=== PATIENT | male | born 1985 | race Caucasian/White ===

== ENCOUNTER 2025-02-15 16:16 | Outpatient (AMB) | payer OTHER, SELFPAY ==
--- OUTSIDE RECORDS SUMMARY | 2025-02-15 16:19 | XMS_ITS | Clinical Summary ---
Author Organization [facility] Address [address] [place] [address] Phone Care Team Providers Care Chartered Accountant Name Role Phone Physician, Pcp Unknown Primary Care Provider Dottie vailable Allergies No known active allergies Medications amLODIPine (NORVASC) 2.5 mg tablet Take 1 tablet (2.5 mg total) by mouth 1 (one) time each day. 30 tablet 09/29/2024 Active Social History Tobacco Use Types Packs/Day Years Used Date Smoking Tobacco: Former Cigarettes Tobacco Cessation:Counseling Given: Not Answered Alcohol Use Standard Drinks/Week Comments Not Currently 0 (1 standard drink = 0.6 oz pur e alcohol) Sex and Gender Information Value Date Recorded Sex Assigned at Not on file Legal Sex Male 5:07 AM EST Gender Identity Not on file Sexual Orientation Not on file Obstetrics History Last Filed Vital Signs Vital Sign Reading Time Taken Comments Blood Pressure 163/88 09/29/2024 4:24 AM EDT Pulse 72 09/29/2024 4:24 AM EDT Temperature 36.9 C (98.4 F) 09/29/2024 4:24 AM EDT Respiratory Rate 16 09/29/2024 4:24 AM EDT Oxygen Saturation 97% 09/29/2024 4:24 AM EDT Inhaled Oxygen Concentration - - Weight 154 kg (340 lb) 09/28/2024 11:59 PM EDT Height 170.2 cm (5' 7 ) 09/28/2024 11:59 PM EDT Body Mass Index 53.25 09/28/2024 11:59 PM EDT Plan of Treatment Health Maintenance Due Date Last Done Comments DTaP,Tdap,and Td Vaccines (1 - Tdap) 2005 Hepatitis B Vaccines (1 of 3 - 19+ 3-dose series) 2005 Cholesterol Screening (Lipid Panel) 05/02/2022 HIV Screening 05/02/2022 Hepatitis C Screening 05/02/2022 Social Influencers of Health Screening 05/02/2022 Depression Screening 05/30/2024 COVID-19 Vaccine (1 - 2023-2 5 season) 2025 Influenza Vaccine (#1) 2025 HIB Vaccines Aged Out No longer eligi ble based on patient's age to complete this topic HPV Vaccines Aged Out No longer eligi ble based on patient's age to complete this topic Hepatitis A Vaccines Aged Out No long er eligible based on patient's age to complete this topic IPV Vaccines Aged Out No longer eligi ble based on patient's age to complete this topic MMR Vaccines Aged Out No longer eligi ble based on patient's age to complete this topic Meningococcal ACWY Vaccine Aged Out N o longer eligible based on patient's age to complete this topic Meningococcal B Vaccine Aged Out No l onger eligible based on patient's age to complete this topic Pneumococcal Vaccine: Pediat rics (0 to 5 Years) and At-Risk Patients (6 to 49 Years) Aged Out No longer eligible b ased on patient's age to complete this topic RSV Immunization Patients Un lashon 20 months Aged Out No longer eligible b ased on patient's age to complete this topic Varicella Vaccines Aged Out No longer eligible based on patient's age to complete this topic Insurance MEDICA[place] - [place] Care Teams Chartered Accountant Relationship Specialty Start Date End Date Physician, Pcp Unknown PCP - General 09/29/24
--- NOTE | 2025-02-15 16:20 | MHC.PC.OV ---
Vital Signs 02/15/25 16:22 02/15/25 16:53 Height 5 ft 7 in Weight 155.129 kg BMI 53.6 BP 162/90 H 160/110 H Respiration 16 Pulse 65 Pulse Source Pulse Oximeter Temp 97.3 F Temp Source Temporal Artery Scan Pulse Oximetry (%) 95 Oxygen Delivery Method Room Air Intake Visit Reasons: New Patient Business Strategy Manager Required: No Accompanied by: Self / Same As Patient Allergies acetaminophen (From Tylenol) Allergy (Mild, Verified 02/15/25 16:23) Hives Medication List - Last Reconciled 02/15/25 by ADELFO Sesay diltiazem HCl 60 mg PO BID lorazepam mg PO Tobacco use date assessed: 02/15/25 Dental Screening Dental Screen Date: 02/15/25 Did you have a dental visit in the last 12 months?: Yes Did you have a dental problem in the last 6 months where you did not have access to dental care?: No Was dental information given to patient?: No HPI HPI Comments History of Present Illness Details 39-year-old male with history of hypertension, chronic right shoulder pain, chronic right knee pain, left elbow pain, morbid obesity with BMI greater than 53 presents to the office today for management of chronic conditions and to establish care. He has prior patient transferring from [facility]. Has had several ER visits with significantly elevated blood pressures with systolic pressure up to 240. He tells me he would bring himself to the ER due to intermittent palpitations where he would feel a skipped beat and then we feel his heart racing would occasionally be drenched in sweat and would feel generally unwell. No known history of arrhythmia. No drugs or alcohol when this was occurring. Reports this has been increasing in frequently over the last 2 months. Workup in the ED had always been unremarkable with the exception of elevated blood pressures. He was started on diltiazem 60 mg twice daily. He is now following with a chalk extruding machine operator at [facility]. He did undergo nuclear stress test, echocardiogram and is having a Holter monitor applied on 02/25. This is a 2 week monitor. He then has follow-up with his chalk extruding machine operator and 03/14. He does report compliance with diltiazem 60 mg twice daily. Despite this, blood pressures remain significantly elevated. He is no longer checking his blood pressures at home. Blood pressure in the office today on recheck was 160/110. No chest pains or headaches. He states there was a question as to whether or not his symptoms were related to anxiety and his former PCP prescribed him. His PCP did order metanephrines which were within normal limits. Reports this is his biggest concern. Chronic right knee pain-denies any injury. Pain is getting progressively worse. Worst when climbing stairs. Left elbow pain-ongoing months. Pain is worst when pulling objects Right shoulder pain-chronic since childhood. Reports multiple dislocations per month. ROS: see hpi EXAM: Constitutional - Awake and Alert, No apparent distress Eyes - PERRL Cardiovascular - S1S2, RRR, No edema Respiratory - Normal lung expansion, Normal respiratory effort, No respiratory distress, CTA bilaterally Extremities - no calf tenderness bilaterally, no swelling Skin - Warm/Dry Neurological - Alert & oriented x3 Psychological - Appropriate affect [facility] Medical History (Updated 02/15/25 @ 16:59 by ADELFO Sesay) Obesity HTN (hypertension) Social History Housing: House Patient Tobacco Use Status: Former Tobacco user e-Cigarette/Vaping Use: Never Used service: No Current occupational status: employed Cognitive needs: No Hearing needs: No Vision needs: Yes (Rx glasses PRN) Questionnaire PHQ-9 Over the last 2 weeks, how often have you been bothered by any of the following problems? 1. Little interest or pleasure in doing things: not at all 2. Feeling down, depressed, or hopeless: not at all Depression Screening Interpretation: Negative Depression Screening Done: Yes Source: Developed by Drs. Camilo Starr, Angle Peres, Omar Shearer and colleagues, with an educational taz from [employer]. Thrive Questionnaire Date Thrive assessed: 02/15/25 I am a: Patient What is your living situation today?: I have a steady place to live Within the past 12 months, did the food you bought not last and you didn't have the money to get more?: Never true Within the past 12 months, did you worry whether your food would run out before you got money to buy more?: Never true Do you have trouble paying for medicines?: No Do you have trouble getting transportation to medical appointments?: No Do you have trouble paying your heating and electricity bill?: No Do you have trouble taking care of your child, family member or friend?: No Do you have trouble with day-to-day activities such as bathing, preparing meals, shopping, managing finances, etc.?: No Are you currently unemployed and looking for a job?: No Are you interested in more education?: No Please select the resources that you would like help with: None THRIVE Score: 0 AUDIT C Alcohol Use Questionnaire (AUDIT-C) 1. How often do you have a drink containing alcohol?: 2-4 times a month 2. How many drinks containing alcohol do you have on a typical day when you are drinking?: 5 or 6 Total Score: 4 KOJO-7 AMB Questionnaire KOJO-7 Date KOJO - 7 assessed: 02/15/25 Feeling nervous, anxious, or on edge: 0 = Not at all Not being able to stop or control worryin = Not at all Worrying too much about different things: 0 = Not at all Trouble relaxin = Not at all Being so restless that it is hard to sit still: 0 = Not at all Becoming easily annoyed or irritable: 0 = Not at all Feeling afraid as if something awful might happen: 0 = Not at all Total KOJO-7 score (0-4 normal; 5-9 mild; 10-14 moderate; 15-21 severe): 0 Source: Developed by Drs. Camilo Starr, Angle Peres, Omar Shearer and colleagues, with an educational taz from [employer]. Physical exam (Primary Care) Vital Signs: Last Vital Signs Temp 97.3 F 02/15/25 16:22 Pulse 65 02/15/25 16:22 Resp 16 02/15/25 16:22 BP 162/90 H 02/15/25 16:22 Pulse Ox 95 02/15/25 16:22 Oxygen Delivery Method Room Air 02/15/25 16:22 BMI result Body Mass Index 53.6 Tobacco/Smoking Status: Tobacco use Status Tobacco use date assessed 02/15/25 02/15/25 16:28 Patient Tobacco Use Status Former Tobacco user 02/15/25 16:28 e-Cigarette/Vaping Use Never Used 02/15/25 16:28 Depression Screening Interpretation: Negative Thrive Assessment: Date of Thrive Assessment Date Thrive assessed 02/15/25 02/15/25 16:22 Coding Level of Care Code New Pt Level 4 (89149) Complex EM visit Add On G2211 Diagnoses HTN (hypertension) I10 Obesity E66.9 Assessment & Plan Assessment & Plan (1) HTN (hypertension): Code(s): I10 - Essential (primary) hypertension Category: Medical Plan: Uncontrolled on recheck. Add losartan 50 mg daily. Continue diltiazem 60 mg twice daily. (2) Obesity: Code(s): E66.9 - Obesity, unspecified Category: Medical Plan: Commended on weight loss efforts thus far. Recommend adding weights and continuing calisthenics as well as doing the cardiovascular activity. Recommend diet lower in calories with increased protein, fruits, vegetables and limiting refined sugars, simple carbohydrates, highly processed foods. Plan Follow-up in the office for 2 weeks with labs and x-rays as below. Will discuss right shoulder pain, right knee pain, left elbow pain at upcoming visit. Reviewed prior [facility] records- 95 pages from ER and prior PCP Orders: Orders Basic Metabolic Panel Today E66.9 - Obesity, unspecified, I10 - Essential (primary) hypertension Hemoglobin A1c Today E66.9 - Obesity, unspecified, I10 - Essential (primary) hypertension Lipid Panel Today E66.9 - Obesity, unspecified, I10 - Essential (primary) hypertension TSH reflex Free T4 Today E66.9 - Obesity, unspecified, I10 - Essential (primary) hypertension XR knee RT 3V Today M25.511 - Pain in right shoulder, M25.561 - Pain in right knee XR shoulder RT min 2V Today M25.511 - Pain in right shoulder Complete Blood Count Auto Diff Today E66.9 - Obesity, unspecified, I10 - Essential (primary) hypertension Liver Panel Today E66.9 - Obesity, unspecified, I10 - Essential (primary) hypertension Medications: New losartan 50 mg PO DAILY 90 tabs 1RF
[2025-02-15 16:22] VITALS: BP 162/90; PULSE 65; RESP 16; TEMP 36.3; O2SAT 95; BMI 53.6
[2025-02-15 16:53] VITALS: BP 160/110
== END 2025-02-15 17:02 | disposition home or self-care (01) ==
LOC: HO.HMCHD 16:17
PROVIDERS: PCP Physician Assistant; Visit Provider Physician Assistant
DX: I10 Essential (primary) hypertension (principal); E66.9 Obesity, unspecified

== ENCOUNTER → 2025-02-15 16:16 | Outpatient (BNVA) | payer OTHER, SELFPAY | PROVIDERS: PCP Physician Assistant; Visit Provider Physician Assistant | DX: I10 Essential (primary) hypertension (principal); E66.01 Morbid (severe) obesity due to excess calories; Z68.43 Body mass index [BMI] 50.0-59.9, adult; G89.29 Other chronic pain; M25.561 Pain in right knee; M25.511 Pain in right shoulder; M25.522 Pain in left elbow; Z13.39 Encounter for screening examination for other mental health and behavioral disorders | CPT/HCPCS: 99202 ==

== ENCOUNTER 2025-03-05 09:04 | Outpatient (AMB) | payer OTHER, SELFPAY ==
--- NOTE | 2025-03-05 08:39 | MHC.PC.OV ---
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 Required: No Accompanied by: Self / Same As Patient Allergies acetaminophen (From Tylenol) Allergy (Mild, Verified 03/05/25 08:39) Hives Medication List - Last Reconciled 03/05/25 by ADELFO Sesay diltiazem HCl 60 mg PO BID lorazepam mg PO PRN losartan 75 mg (1.5 x 50 mg) PO DAILY nitroglycerin mg sublingual Tobacco use date assessed: 02/15/25 Dental Screening Dental Screen Date: 02/15/25 HPI HPI Comments History of Present Illness Details 39-year-old male with history of hypertension, chronic right shoulder pain, chronic right knee pain, left elbow pain, morbid obesity with BMI greater than 53 presents to the office today for evaluation Hypertension-blood pressure elevated at 160/110 in the office 2 weeks ago. Diltiazem 60 mg twice daily was continued and losartan 50 mg daily was added. He has been taking these as prescribed. Initial blood pressure 130/90 in the office today, recheck 134/92. Systolic blood pressures up to 240 reported by patient and seen at the ED. He did have metanephrines ordered by PCP which were within normal limits. Chest pain/palpitations-atypical. Does follow with Cardiology. See note from 02/15 for additional history. Reports undergoing nuclear stress test, echocardiogram and currently is wearing a 2 week Holter monitor. Has upcoming cardiology appointment on 03/14 at [facility] Cardiovascular [facility]. Blood pressures are more controlled but still reports occasional ?jolts? in his heart Chronic right knee pain-denies any injury. Pain is getting progressively worse. Worst when climbing stairs. Left elbow pain-ongoing months. Pain is worst when pulling objects. Reports pain when bench pressing. Reports a sharp pain that then becomes a soreness for several days and then resolves Right shoulder pain-chronic since childhood. Reports multiple dislocations per month. Has not yet had x-rays done Morbid obesity-current BMI 50.4. Has lost 9 kg since last visit through diet and exercise. ROS: See HPI EXAM: Constitutional - Awake and Alert, No apparent distress Eyes - PERRL Cardiovascular - S1S2, RRR, No edema Respiratory - Normal lung expansion, Normal respiratory effort, No respiratory distress, CTA bilaterally Extremities - no calf tenderness bilaterally, no swelling. Tenderness to palpation over the lateral epicondyle and pain with supination of the LUE Skin - Warm/Dry Neurological - Alert & oriented x3 Psychological - Appropriate affect [facility] Medical History (Updated 03/05/25 @ 09:34 by ADELFO Sesay) Lateral epicondylitis (tennis elbow) Morbid obesity with BMI of 50.0-59.9, adult Obesity HTN (hypertension) Social History Housing: House Patient Tobacco Use Status: Former Tobacco user e-Cigarette/Vaping Use: Never Used service: No Current occupational status: employed Cognitive needs: No Hearing needs: No Vision needs: Yes (Rx glasses PRN) Questionnaire Thrive Questionnaire Date Thrive assessed: 02/15/25 KOJO-7 AMB Questionnaire KOJO-7 Date KOJO - 7 assessed: 02/15/25 Source: Developed by Drs. Camilo Starr, Angle Peres, Omar Shearer and colleagues, with an educational taz from [employer] Everywhere. Physical exam (Primary Care) Vital Signs: Last Vital Signs Temp 96.9 F 03/05/25 09:11 Pulse 70 03/05/25 09:11 Resp 16 03/05/25 09:11 BP 130/90 H 03/05/25 09:11 Pulse Ox 96 03/05/25 09:11 Oxygen Delivery Method Room Air 03/05/25 09:11 BMI result Body Mass Index 50.4 Tobacco/Smoking Status: Tobacco use Status Tobacco use date assessed 02/15/25 03/05/25 08:40 Patient Tobacco Use Status Former Tobacco user 03/05/25 08:40 e-Cigarette/Vaping Use Never Used 03/05/25 08:40 Thrive Assessment: Date of Thrive Assessment Date Thrive assessed 02/15/25 03/05/25 08:40 Coding Level of Care Code Est Pt Level 4 (36667) Complex EM visit Add On G2211 Diagnoses HTN (hypertension) I10 Morbid obesity with BMI of 50.0-59.9, adult E66.01; Z68.43 Lateral epicondylitis (tennis elbow) M77.10 Assessment & Plan Assessment & Plan (1) HTN (hypertension): Code(s): I10 - Essential (primary) hypertension Category: Medical Plan: Improved but remains uncontrolled. Increase losartan to 75 mg daily. Continue diltiazem 60 mg twice daily. (2) Morbid obesity with BMI of 50.0-59.9, adult: Code(s): E66.01 - Morbid (severe) obesity due to excess calories; Z68.43 - Body mass index [BMI] 50.0-59.9, adult Category: Medical Plan: Commended on weight loss efforts thus far. Continue diet lower in calories with emphasis on increased protein, fruits, vegetables and lower in refined sugars, simple carbohydrates, highly processed foods. Recommend moderate intensity exercise for at least 150 minutes weekly. He is referred to weight management clinic and is interested in bariatric surgery. (3) Lateral epicondylitis (tennis elbow): Code(s): M77.10 - Lateral epicondylitis, unspecified elbow Category: Medical Plan: Recommend ibuprofen and ice. Given written exercises to perform at home. Given duration of symptoms, referred to occupational therapy. Plan Follow-up in the office in 4-6 weeks for annual physical exam. Please have labs and x-rays as previously ordered completed Orders: Orders OT Evaluation and Treatment Today M77.10 - Lateral epicondylitis, unspecified elbow Referrals Bariatric Surgery Referral E66.01 - Morbid (severe) obesity due to excess calories, Z68.43 - Body mass index [BMI] 50.0-59.9, adult Medications: Changed From losartan 50 mg PO DAILY 90 tabs 1RF To losartan 75 mg (1.5 x 50 mg) PO DAILY 90 tabs 1RF
[2025-03-05 09:11] VITALS: BP 130/90; PULSE 70; RESP 16; TEMP 36.1; O2SAT 96; BMI 50.4
[2025-03-05 09:39] VITALS: BP 136/92
--- OUTSIDE RECORDS SUMMARY | 2025-03-05 09:57 | XMS_ITS | Clinical Summary ---
Author Organization [facility] Address [address] [place] [address] Phone Care Team Providers Care Floorwalker Name Role Phone Physician, Pcp Unknown Primary [...] of 3 - 19+ 3-dose series) 2005 HPV Vaccines (1 - 3-dose SCD M series) 2013 Cholesterol Screening (Lipid Panel) 05/02/2022 HIV Screening 05/02/2022 Hepatitis C Screening 05/02/2022 Social Influencers of Health Screening 05/02/2022 Depression Screening 05/30/2024 COVID-19 Vaccine (1 - 2023-2 5 season) 2025 Influenza Vaccine (#1) 2025 RSV Immunization Adult Patie nts (1 - 1-dose 75+ series) 2061 HIB Vaccines Aged Out No longer eligi [...] topic Insurance MEDICAID - [place] Care Teams Floorwalker Relationship Specialty Start Date End Date Physician, Pcp Unknown PCP - General 09/29/24
== END 2025-03-05 09:41 | disposition home or self-care (01) ==
LOC: HO.HMCHD 09:05
PROVIDERS: PCP Physician Assistant; Visit Provider Physician Assistant
DX: I10 Essential (primary) hypertension (principal); E66.01 Morbid (severe) obesity due to excess calories; Z68.43 Body mass index [BMI] 50.0-59.9, adult; M77.10 Lateral epicondylitis, unspecified elbow

== ENCOUNTER 2025-03-05 09:04 | Outpatient (REF) | payer OTHER, SELFPAY ==
--- NOTE | ~2025-03-05 | XR_ITS ---
EXAMINATION: XR KNEE, RIGHT CLINICAL INFORMATION: M25.561 - Pain in right knee COMPARISON: None available. TECHNIQUE: 3 views of the right knee. FINDINGS: No fracture or dislocation. There is slight lateral position of the patella on the AP view. Mild arthritis at the lateral femoral tibial and patellofemoral joints with small osteophytes. Small joint effusion. Soft tissue calcification or ossification at the patellar tendon insertion to the tibia. XR/XR knee RT 3V IMPRESSION: Degenerative changes at the patellofemoral and lateral femoral tibial joints and slight lateral position of the patella on the AP view. Electronically signed by: Krista Ann MD 03/05/2025 11:07 AM EDT
--- NOTE | ~2025-03-05 | XR_ITS ---
EXAMINATION: XR SHOULDER, RIGHT CLINICAL INFORMATION: M25.511 - Pain in right shoulder COMPARISON: None available. TECHNIQUE: AP external rotation, Grashey, scapular Y, and axillary views of the right shoulder. FINDINGS: Mild arthritis at the acromioclavicular joint. Joint spaces otherwise normal. No fracture or dislocation. Normal soft tissues. XR/XR shoulder RT min 2V IMPRESSION: Mild arthritis at the acromioclavicular joint. Electronically signed by: Krista Ann MD 03/05/2025 11:04 AM EDT
[2025-03-05 10:12] LABS: MANUAL DIFF FLAG NO
[2025-03-05 10:35] LABS: Hematocrit 41.2 % (42.0-52.0); Hemoglobin 13.3 g/dl (14.0-18.0); Imm Gran Abs Auto 0.02 X10*3/uL (0.00-0.03); Imm Gran Pct Auto 0.3 % (0.0-0.4); Lymphocytes Absolute Auto 1.3 X10*3/uL (1.2-4.9); Mean Corpuscular HGB Conc 32.3 g/dl (31.0-36.0); Mean Corpuscular Hemoglobin 26.5 pg (27.0-33.0); Mean Corpuscular Volume 82.2 fL (80.0-98.0); NRBC Abs Auto 0.000 X10*3/uL (0.0-0.012); NRBC Pct Auto 0.0 /100WBC (0.0-0.2); Platelet Count 184 X10*3/uL (160-400); Red Blood Count 5.01 X10*6/uL (4.60-5.80); White Blood Count 6.4 X10*3/uL (4.8-10.8)
[2025-03-05 11:23] LABS: Albumin Level 4.2 g/dL (3.5-5.0); Alkaline Phosphatase 111 U/L (39-117); Anion Gap 11 (12-20); Aspartate Amino Transferase 19 U/L (5-37); Blood Urea Nitrogen 16 mg/dL (9-16); Calcium 8.5 mg/dL (8.4-10.2); Carbon Dioxide 30 mmol/L (22-29); Chloride 104 mmol/L (96-108); Cholesterol 182 mg/dL (<200); Estimated Glomerular Filt Rate > 60; HDL Cholesterol 33 mg/dL (>40); Potassium 4.5 mmol/L (3.3-5.1); Sodium 140 mmol/L (135-145); Total Protein 6.6 g/dL (6.5-8.0); Triglycerides 165 mg/dL (<150)
[2025-03-05 11:38] LABS: Alanine Aminotransferase 35 U/L (0-40)
== END 2025-03-05 09:05 | disposition home or self-care (01) ==
LOC: HO.XRAY 09:04
PROVIDERS: PCP Physician Assistant; Visit Provider Physician Assistant
DX: I10 Essential (primary) hypertension (principal); E66.01 Morbid (severe) obesity due to excess calories; M77.10 Lateral epicondylitis, unspecified elbow; M25.561 Pain in right knee; M25.511 Pain in right shoulder; Z68.43 Body mass index [BMI] 50.0-59.9, adult; Z79.899 Other long term (current) drug therapy
CPT/HCPCS: 36415; 73030; 73562; 80048; 80061; 80076; 83036; 84443; 85025; 99212

== ENCOUNTER → 2025-03-05 10:12 | Outpatient (BNV) | payer OTHER, SELFPAY | PROVIDERS: PCP Physician Assistant; Visit Provider Radiology Diagnostic Radiology | DX: M17.11 Unilateral primary osteoarthritis, right knee (principal); M25.511 Pain in right shoulder | CPT/HCPCS: 73030; 73562 ==

== ENCOUNTER 2025-03-20 09:06 | Outpatient (AMB) | payer OTHER, SELFPAY ==
--- OUTSIDE RECORDS SUMMARY | 2025-03-20 10:03 | XMS_ITS | Clinical Summary ---
Author Organization [facility] Address [address] [place] [address] Phone Care Team Providers Care Restaurant Hostess Name Role Phone Physician, Pcp Unknown Primary [...] topic Insurance MEDICAID - [place] Care Teams Restaurant Hostess Relationship Specialty Start Date End Date Physician, Pcp Unknown PCP - General 09/29/24
--- NOTE | 2025-03-20 10:15 | MHC.OFFVISWM ---
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 Allergies acetaminophen (From Tylenol) Allergy (Mild, Verified 03/20/25 10:15) Hives cat dander (cats) Allergy (Unknown, Verified 03/20/25 10:15) Hives Medication List - Last Reconciled 03/20/25 by Con Middleton MD diltiazem HCl CD (Cartia XT) 180 mg PO DAILY lorazepam mg PO PRN losartan 75 mg (1.5 x 50 mg) PO DAILY nitroglycerin mg sublingual HPI 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 oat bars), 2 snacks after dinner (2 bags of chips) Exercise: has home treadmill (inclines and tracks calories) Beverages: Coffee: none, Tea: none, Soda: none, Juice: (Grapejuice, apple juice) x1/wk, ETOH: 1-2/wk (5-6 beers) PFSH Medical History (Updated 03/20/25 @ 10:19 by Con Middleton MD) Obstructive sleep apnea on CPAP Anxiety Lateral epicondylitis (tennis elbow) Morbid obesity with BMI of 50.0-59.9, adult Obesity HTN (hypertension) Surgical History (Updated 03/07/25 @ 15:33 by Kathy Caal CMA) Hx of wisdom tooth extraction Hx of cholecystectomy Family History (Updated 03/07/25 @ 15:36 by Kathy Caal CMA) Mother Stomach cancer Epilepsy Diabetes Liver failure Father Liver failure AIDS Son No problems noted. Son No problems noted. Son No problems noted. Son No problems noted. Son No problems noted. Social History (Updated 03/07/25 @ 15:33 by Kathy Caal CMA) Housing: House Alcohol intake: current Alcohol intake frequency: a few times a week Patient Tobacco Use Status: Former Tobacco user e-Cigarette/Vaping Use: Never Used service: No Current occupational status: employed Cognitive needs: No Hearing needs: No Vision needs: Yes (Rx glasses PRN) Telehealth Telehealth Telehealth Platform: Telephone Location of provider rendering services: practice address Location of patient: address on file Patient Identification confirmed using: Name, : Yes Telehealth method: voice only Patient verbally consented to treatment: Yes Patient verbally consented to billing insurance company: Yes Patient informed of any privacy concerns related to visit: Yes Minutes spent on Phone/Video with Pt.: 60 Assessment & Plan Assessment & Plan (1) Morbid obesity with BMI of 50.0-59.9, adult: Code(s): E66.01 - Morbid (severe) obesity due to excess calories; Z68.43 - Body mass index [BMI] 50.0-59.9, adult Category: Medical Plan: 1.? Plan for lap sleeve gastrectomy. If diaphragmatic or ventral hernias are present at time of surgery, these will be repaired laparoscopically as well. I emphasized the importance of close follow-up, adherence to instructions and good communication. The surgery does not replace the need to change your lifestlyle which is the cause of the obesity problem. The surgery provides the motivation to try again to change your lifestyle, it reduces the appetite and make the transition to a better lifestyle easier and doubles the amount of weight you would lose compared to doing the lifestyle change without the surgery. You will need to be on a liquid diet with protein shakes for 2 weeks before surgery to maximize weight loss and boost your nutritional status to recover better from surgery and also for the first two weeks after surgery to let the stomach heal before we introduce other foods. After the first 2 weeks we will introduce protein bars and soft foods like scrambled eggs, cottage cheese and yogurt and after the 6th week will introduce meat, fish and cooked vegetables in small amounts. Over time you should be able to eat everything in small amounts. Side effects like nausea, vomiting, heartburn or abdominal pain are not common in the practice unless you are not following in the practice. This operation requires lifetime commitment to following in our practice and communication with me. You will much less weight and experience side effects if you don?t communicate or not following in the practice. Complications are rare and in our practice is about 1/10 of the national average. However, you can develop bleeding that may require transfusion (hasn?t happened for year in the practice), you may from complications (we did not have any deaths in the practice) and infections. Infections are usually a result of breakdown in communication or not understanding or following directions correctly. They are difficult to treat, they can happen during the first 6 weeks, they may require to be in the hospital for weeks or even months, not being able to eat by mouth and you may have drains and surgeries to try and correct the issue. Other risks and complications include possible conversion to an open procedure, leaks, small bowel obstruction, blood clots, cardiac, or pulmonary complications, as usp complications such as ulcers, insufficient weight loss and vitamin deficiencies. 2.??Nutritional counseling. Start with one CELEBRATE REBUILD protein (buy online) shake (ONE scoop EACH in 8oz low fat unsweetened almond milk each) at 7am-9am, one protein bar (CELEBRATE protein bars, buy online) at 10am-12pm, another CELEBRATE REBUILD protein shake (ONE scoop EACH in 8oz low fat unsweetened almond milk each) at 1pm-3pm, one protein bar (CELEBRATE protein bars, buy online) at 4pm-6pm, dinner at 7pm (12 forks of protein and 12 forks of salad/vegetables) AND one more protein bar after dinner at 9pm-11pm. So you do 2 protein shakes, 3 protein bars and one meal per day. Meal to include lean meat (beef, fish, pork, turkey, chicken), or wallisian yogurt, or egg whites, or beans with a salad with olive oil and fruits (berries, pears, apples, kiwi). Avoid salt, breads, potatoes, rice, pasta, desserts. 3. Each shake would be drunk slowly, like coffee in a period of 2 hours. 4. Cut each bar in 4 pieces and eat each piece in 30min ?to make each bar last 2 hours. 5. I emphasized the importance of measuring accurately the food portion and measure it when serving the food in plate 6. The meal portions include 12 full-size forks of meat and 12 full-size forks of salad. You always eat the meat portion but you can replace up to 6 forks for salad/vegetables with rice, potatoes or pasta, or a fruit ?if you like. The less you do it the better weight loss will be. 7. One full-size fork is what it can be scooped on the fork without falling aside and not what can be bit with the fork. Use regular forks like those you find in a typical restaurant. 8.? Please buy the body composition scale we discussed and send me weight measurements as soon as possible and then once a week. Always include your diet and exercise plan. 9. Start treadmill with an incline of 2.0 and speed of 3.0. Increase incline by 1 every 3 min to a max incline of 8.0, stay 3min at 8.0 and then return to 2.0 and repeat same steps until calorie goal is met. Goal is to burn 2000 calories per week on exercise, which means either 300 calories daily. 10. Goal is to lose at least 1.5-2lbs per week 11. Goal to lose 10% of your weight before surgery, which is about 26lbs. Ultimate weight goal: 240lbs before surgery 12. Please follow the diet plan exactly without any change. If you don't like something about the plan or you feel hungry you need to communicate with me so I can help you revise the plan. You should not change the plan yourself 13. To be scheduled for EGD to assess the stomach's anatomy. The possibility of biopsies was discussed. Patient needs to avoid use of NSAIDs and aspirin for 1 week prior to EGD. You must be on liquids only the day before your endoscopy. Risks of perforation and bleeding was discussed with the patient. This will be an outpatient procedure with IV sedation. 14. As of tomorrow, please send me a picture of your meal plate after you measure it, but before you consume it. Orders: Orders H Pylori Breath Test Today E66.01 - Morbid (severe) obesity due to excess calories, I10 - Essential (primary) hypertension, Z68.43 - Body mass index [BMI] 50.0-59.9, adult Vitamin B12 and Folate Today E66.01 - Morbid (severe) obesity due to excess calories, I10 - Essential (primary) hypertension, Z68.43 - Body mass index [BMI] 50.0-59.9, adult C Reactive Protein Today E66.01 - Morbid (severe) obesity due to excess calories, I10 - Essential (primary) hypertension, Z68.43 - Body mass index [BMI] 50.0-59.9, adult Vitamin A Today E66.01 - Morbid (severe) obesity due to excess calories, I10 - Essential (primary) hypertension, Z68.43 - Body mass index [BMI] 50.0-59.9, adult TSH reflex Free T4 Today E66.01 - Morbid (severe) obesity due to excess calories, I10 - Essential (primary) hypertension, Z68.43 - Body mass index [BMI] 50.0-59.9, adult Ferritin Today E66.01 - Morbid (severe) obesity due to excess calories, I10 - Essential (primary) hypertension, Z68.43 - Body mass index [BMI] 50.0-59.9, adult Vitamin D 25-OH Total Today E66.01 - Morbid (severe) obesity due to excess calories, I10 - Essential (primary) hypertension, Z68.43 - Body mass index [BMI] 50.0-59.9, adult US abdomen comp w elastography Today E66.01 - Morbid (severe) obesity due to excess calories, I10 - Essential (primary) hypertension, Z68.43 - Body mass index [BMI] 50.0-59.9, adult ECG 12 lead EKG Today E66.01 - Morbid (severe) obesity due to excess calories, I10 - Essential (primary) hypertension, Z68.43 - Body mass index [BMI] 50.0-59.9, adult Insulin Today E66.01 - Morbid (severe) obesity due to excess calories, I10 - Essential (primary) hypertension, Z68.43 - Body mass index [BMI] 50.0-59.9, adult Hemoglobin A1c Today E66.01 - Morbid (severe) obesity due to excess calories, I10 - Essential (primary) hypertension, Z68.43 - Body mass index [BMI] 50.0-59.9, adult Complete Blood Count Auto Diff Today E66.01 - Morbid (severe) obesity due to excess calories, I10 - Essential (primary) hypertension, Z68.43 - Body mass index [BMI] 50.0-59.9, adult Lipid Panel Today E66.01 - Morbid (severe) obesity due to excess calories, I10 - Essential (primary) hypertension, Z68.43 - Body mass index [BMI] 50.0-59.9, adult IRON PROFILE Today E66.01 - Morbid (severe) obesity due to excess calories, I10 - Essential (primary) hypertension, Z68.43 - Body mass index [BMI] 50.0-59.9, adult Comprehensive Met. Panel Today E66.01 - Morbid (severe) obesity due to excess calories, I10 - Essential (primary) hypertension, Z68.43 - Body mass index [BMI] 50.0-59.9, adult Zinc Today E66.01 - Morbid (severe) obesity due to excess calories, I10 - Essential (primary) hypertension, Z68.43 - Body mass index [BMI] 50.0-59.9, adult Vitamin B1 Today E66.01 - Morbid (severe) obesity due to excess calories, I10 - Essential (primary) hypertension, Z68.43 - Body mass index [BMI] 50.0-59.9, adult XR chest 2V Today E66.01 - Morbid (severe) obesity due to excess calories, I10 - Essential (primary) hypertension, Z68.43 - Body mass index [BMI] 50.0-59.9, adult FL upper GI w air Today E66.01 - Morbid (severe) obesity due to excess calories, I10 - Essential (primary) hypertension, Z68.43 - Body mass index [BMI] 50.0-59.9, adult Referrals Behavioral Health Referral E66.01 - Morbid (severe) obesity due to excess calories, I10 - Essential (primary) hypertension, Z68.43 - Body mass index [BMI] 50.0-59.9, adult Nutrition/Dietitian Referral E66.01 - Morbid (severe) obesity due to excess calories, I10 - Essential (primary) hypertension, Z68.43 - Body mass index [BMI] 50.0-59.9, adult
[2025-03-20 10:27] VITALS: BMI 52.9
== END 2025-03-20 10:58 | disposition home or self-care (01) ==
LOC: HO.HBS 09:06
PROVIDERS: PCP Physician Assistant; Visit Provider Surgery
DX: E66.01 Morbid (severe) obesity due to excess calories (principal); Z68.43 Body mass index [BMI] 50.0-59.9, adult
CPT/HCPCS: 99204

== ENCOUNTER 2025-04-02 09:43 | Outpatient (AMB) | payer OTHER, SELFPAY ==
--- NOTE | 2025-04-02 09:44 | A.OFFPC_ITS ---
Vital Signs 04/02/25 09:46 04/02/25 10:19 Height 5 ft 5.94 in Weight 155.129 kg BMI 55.3 BP 154/94 H 140/96 H Blood Pressure Location Rt brachial Position Sitting Respiration 18 Pulse 68 Pulse Source Pulse Oximeter Temp 97.8 F Temp Source Temporal Artery Scan Pulse Oximetry (%) 98 Oxygen Delivery Method Room Air Intake Visit Reasons: physical Allergies acetaminophen (From Tylenol) Allergy (Mild, Verified 04/02/25 09:44) Hives cat dander (cats) Allergy (Unknown, Verified 04/02/25 09:44) Hives Medication List - Last Reconciled 04/02/25 by ADELFO Sesay diltiazem HCl CD (Cartia XT) 180 mg PO DAILY losartan 75 mg (1.5 x 50 mg) PO DAILY nitroglycerin mg sublingual Tobacco use date assessed: 02/15/25 Dental Screening Dental Screen Date: 02/15/25 HPI HPI Comments History of Present Illness Details 39-year-old male with history of hyperte nsion, chronic right shoulder pain, chronic right knee pain, left elbow pain, morbid obesity with BMI greater than 53 presents to the office today f for management of chronic conditions and for annual physical exam. He currently lives at home with his and 2 daughters as well as his [id number] occasionally. 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 He reports that he will drink several beers 3-4 once weekly. He does have a remote history of cigarette smoking. He had been smoking 1/2 pack per day possibly last and smoked for about 20 years. He quit 10 years ago. Reports a remote history of inhaled cocaine about 8 years ago but then had a relapse following a 1 time use about 1 year ago. Reports chronic nasal congestion since then. Denies any history of IV drug abuse. Hypertension-blood pressure elevated at 160/110 in the office 2 weeks ago. Diltiazem 60 mg twice daily was continued and losartan 50 mg daily was added. He continues on these doses though his diltiazem was increased to 180 CD but he has not picked up the prescription. Blood pressure in the office today 154/94 and 140/96 on recheck. Blood pressures have been consistently elevated. He did have ER visit where systolic blood pressures were up to 240 per his report several months ago and is now following with Cardiology as below Chest pain/palpitations-atypical. Does follow with Cardiology. See note from 02/15 for additional history. Reports undergoing nuclear stress test, echocardiogram and currently is wearing a 2 week Holter monitor. Has upcoming cardiology appointment on 03/14 at [facility]. Blood pressures are more controlled but still reports occasional ?jolts? in his heart. Reports he did have a Holter monitor as ordered by Cardiology and was told that there was ?an issue? with a rhythm when he pushed the button though has not had her follow-up appointment. He states that the lightheadedness resolved, but all other symptoms do continue. He has not increase the dose of diltiazem as was recommended by myself as well as Cardiology as he has not been able to get to the pharmacy per his report. We did discuss the possibility of this being related to anxiety but he is not convinced of this. Chronic right knee pain-denies any injury. Pain is getting progressively worse. Worst when climbing stairs. Left elbow pain-ongoing months. Pain is worst when pulling objects. Reports pain when bench pressing. Reports a sharp pain that then becomes a soreness for several days and then resolves Right shoulder pain-chronic since childhood. Reports multiple dislocations per month. Has not yet had x-rays done Morbid obesity-current BMI 55.3. He is now meeting with bariatric surgery and has been transitioned to bariatric diet and is also meeting with nutrition as. He is also change his exercise routine. He has upcoming endoscopy next month. Has been approved for weight loss surgery. Concerns: None other than above Health Maintenance: Colonoscopy to start at age 46 Eye exam up-to-date. He wears corrective lenses but no contacts Dental exam up-to-date ROS: General: No fevers, malaise, unintentional weight loss HEENT: No blurred vision, diplopia. No sore throat, nasal congestion, rhinorrhea, sinus pain, ear pain. No hearing loss Neck - no adenopathy Cardiovascular: No chest pain, palpitations, or leg edema Respiratory: No shortness of breath, wheezing, cough GI: No dysphagia, odynophagia, globus sensation. No abdominal pain, nausea, vomiting, diarrhea, constipation, melena, hematochezia : No dysuria, hematuria, increased urinary frequency, decreased urinary outpu t. No testicular swelling or pain. No penile discharge MSK: No myalgia, back pain, arthralgias Neuro: No headaches, weakness, paresthesias Psych: no depression/anxiery. No AH/VH. No SI/HI Skin: No rashes or lesions EXAM: Constitutional - Awake and Alert, No apparent distress , morbidly obese Eyes - PERRLA, EOMI. Anicteric Ears - external ears normal, canals clear, TMs intact and pearly hinojosa with good cone of light Nose- septum midline, nares clear, no sinus tenderness Mouth/throat- mucosa moist, tongue and uvula midline, no erythema/edema or tonsillar adenopathy. Neck-trachea midline, thyroid symmetric without palpable nodules, no adenopathy Cardiovascular - S1S2, RRR, No edema Respiratory - Normal lung expansion, Normal respiratory effort, No respiratory distress, CTA bilaterally Gastrointestinal - NT / ND; +BS; No rebound or guarding - No CVA tenderness Extremities - no calf tenderness bilaterally, no swelling Musculoskeletal - Normal inspection, normal ROM Skin - Warm/Dry, no concerning lesions Neurological - Alert & oriented x3, CN II-XII in tact, 5/5 strength BUE and BLE, 2+ patellar reflexes, sensation intact Psychological - Appropriate affect PFSH Medical History (Updated 04/02/25 @ 12:57 by ADELFO Sesay) History of cocaine use Obstructive sleep apnea on CPAP Anxiety Lateral epicondylitis (tennis elbow) Morbid obesity with BMI of 50.0-59.9, adult Obesity HTN (hypertension) Surgical History Hx of wisdom tooth extraction Hx of cholecystectomy Family History Mother Stomach cancer Epilepsy Diabetes Liver failure Father Liver failure AIDS Son No problems noted. Son No problems noted. Son No problems noted. Son No problems noted. Son No problems noted. Social History Housing: House Alcohol intake: current Alcohol intake frequency: a few times a week Patient Tobacco Use Status: Former Tobacco user e-Cigarette/Vaping Use: Never Used service: No Current occupational status: employed Cognitive needs: No Hearing needs: No Vision needs: Yes (Rx glasses PRN) Questionnaire Thrive Questionnaire Date Thrive assessed: 02/15/25 KOJO-7 AMB Questionnaire KOJO-7 Date KOJO - 7 assessed: 02/15/25 Source: Developed by Drs. Camilo Starr, Angle Peres, Omar Shearer and colleagues, with an educational taz from [employer]. Physical exam (Primary Care) Vital Signs: Last Vital Signs Temp 97.8 F 04/02/25 09:46 Pulse 68 04/02/25 09:46 Resp 18 04/02/25 09:46 BP 140/96 H 04/02/25 10:19 Pulse Ox 98 04/02/25 09:46 Oxygen Delivery Method Room Air 04/02/25 09:46 BMI result Body Mass Index 55.3 Tobacco/Smoking Status: Tobacco use Status Tobacco use date assessed 02/15/25 04/02/25 09:48 Patient Tobacco Use Status Former Tobacco user 04/02/25 09:48 e-Cigarette/Vaping Use Never Used 04/02/25 09:48 Thrive Assessment: Date of Thrive Assessment Date Thrive assessed 02/15/25 04/02/25 09:48 Coding Level of Care Code Est Pt Level 4 (74263) Complex EM visit Add On G2211 Diagnoses HTN (hypertension) I10 Morbid obesity with BMI of 50.0-59.9, adult E66.01; Z68.43 Chest pain R07.9 Palpitations R00.2 Chronic nasal congestion R09.81 Assessment & Plan Assessment & Plan (1) HTN (hypertension): Code(s): I10 - Essential (primary) hypertension Category: Medical Plan: Improved but remains uncontrolled. Continue losartan to 75 mg daily. Increase diltiazem to 180 mg CD as per cardiology. Advised to check blood pressures at home, if elevated above 140/90 reach out to the office for further medication adjustment. He does express desire to come off of his medications at some point. We did discuss that with significant lifestyle modifications, we can consider this so long as his blood pressures are stable to lower risk of cardiovascular event. (2) Morbid obesity with BMI of 50.0-59.9, adult: Code(s): E66.01 - Morbid (severe) obesity due to excess calories; Z68.43 - Body mass index [BMI] 50.0-59.9, adult Category: Medical Plan: Commended on weight loss efforts thus far. Continue with bariatric diet and continue following with bariatric surgeon as scheduled. Endoscopy next month as scheduled. Continue with his exercise routine. Recommend moderate intensity exercise for at least 150 minutes weekly. (3) Chest pain: Code(s): R07.9 - Chest pain, unspecified Category: Medical Plan: See below. Chest pain is atypical. (4) Palpitations: Code(s): R00.2 - Palpitations Category: Medical Plan: Reviewed last cardiology note from [facility] as well as echocardiogram. Will request results of Holter monitor. He is requesting 2nd opinion and he is referred to our Cardiology Department. Advised to continue on diltiazem and we will monitor blood pressures closely. We did discuss that this very well could be related to anxiety but he does not feel the same. He is very confident that this is cardiac related. 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 Recommend loratadine and fluticasone nasal spray. He is also referred to ENT for further evaluation and management. Continue with avoidance of cocaine. Plan Follow-up in the office in 2 months. Advised to check blood pressures at home, contact the office if greater than 140/90. Referrals as noted below. Labs as below Orders: Referrals Ear/Nose/Throat Referral F14.91 - Cocaine use, unspecified, in remission, R09.81 - Nasal congestion Cardiology Referral R00.2 - Palpitations, R07.9 - Chest pain, unspecified Medications: New fluticasone propionate 50 mcg/actuation (Allergy Relief (fluticasone)) administer into each nostril 1 spray intranasal BID 16 grams 5RF loratadine (Allergy Relief (loratadine)) 10 mg PO DAILY 90 caps 1RF
[2025-04-02 09:46] VITALS: BP 154/94; PULSE 68; RESP 18; TEMP 36.6; O2SAT 98; BMI 55.3
[2025-04-02 10:19] VITALS: BP 140/96
--- OUTSIDE RECORDS SUMMARY | 2025-04-02 11:01 | XMS_ITS | Clinical Summary ---
Author Organization [facility] Address [address] [place] [address] Phone Care Team Providers Care Associate Name Role Phone Physician, Pcp Unknown Primary [...] topic Insurance MEDICA[place] - [place] Care Teams Associate Relationship Specialty Start Date End Date Physician, Pcp Unknown PCP - General 09/29/24
== END 2025-04-02 10:27 | disposition home or self-care (01) ==
LOC: HO.HMCHD 09:43
PROVIDERS: PCP Physician Assistant; Visit Provider Physician Assistant
DX: I10 Essential (primary) hypertension (principal); E66.01 Morbid (severe) obesity due to excess calories; Z68.43 Body mass index [BMI] 50.0-59.9, adult; R07.9 Chest pain, unspecified; R00.2 Palpitations; R09.81 Nasal congestion

== ENCOUNTER 2025-04-02 09:43 | Outpatient (REF) | payer OTHER, SELFPAY ==
--- NOTE | ~2025-04-02 | XR_ITS ---
EXAMINATION: XR CHEST CLINICAL INFORMATION: E66.01 - Morbid (severe) obesity due to excess calories COMPARISON: None available. TECHNIQUE: PA and lateral views FINDINGS: No consolidation, pleural effusion or pneumothorax. No hyperinflation. Cardiomediastinal silhouette size is normal. Multilevel thoracolumbar spondylosis. XR/XR chest 2V IMPRESSION: No acute airspace disease. Multilevel spondylosis, thoracolumbar spine. Electronically signed by: Steven Machado MD 04/02/2025 11:13 AM MEG KAN
[2025-04-02 10:54] LABS: MANUAL DIFF FLAG NO
--- NOTE | 2025-04-02 11:02 | ECG_ITS ---
Test Reason : E66.1 Blood Pressure : */* mmHG Vent. Rate : 58 BPM Atrial Rate : 58 BPM P-R Int : 180 ms QRS Dur : 94 ms QT Int : 396 ms P-R-T Axes : 5 16 27 degrees QTcB Int : 388 ms Sinus bradycardia Otherwise normal ECG No previous ECGs available Referred By: Con Middleton Electronically Signed By: Jim Bob
[2025-04-02 11:28] LABS: Hematocrit 44.2 % (42.0-52.0); Hemoglobin 14.1 g/dl (14.0-18.0); Imm Gran Abs Auto 0.02 X10*3/uL (0.00-0.03); Imm Gran Pct Auto 0.3 % (0.0-0.4); Lymphocytes Absolute Auto 1.2 X10*3/uL (1.2-4.9); Mean Corpuscular HGB Conc 31.9 g/dl (31.0-36.0); Mean Corpuscular Hemoglobin 25.8 pg (27.0-33.0); Mean Corpuscular Volume 80.8 fL (80.0-98.0); NRBC Abs Auto 0.000 X10*3/uL (0.0-0.012); NRBC Pct Auto 0.0 /100WBC (0.0-0.2); Platelet Count 200 X10*3/uL (160-400); Red Blood Count 5.47 X10*6/uL (4.60-5.80); White Blood Count 6.2 X10*3/uL (4.8-10.8)
[2025-04-02 11:58] LABS: Alanine Aminotransferase 37 U/L (0-40); Albumin Level 4.3 g/dL (3.5-5.0); Alkaline Phosphatase 124 U/L (39-117); Anion Gap 11 (12-20); Aspartate Amino Transferase 22 U/L (5-37); Blood Urea Nitrogen 20 mg/dL (9-16); Calcium 8.9 mg/dL (8.4-10.2); Carbon Dioxide 26 mmol/L (22-29); Chloride 104 mmol/L (96-108); Cholesterol 193 mg/dL (<200); Estimated Glomerular Filt Rate > 60; HDL Cholesterol 35 mg/dL (>40); Iron 101 mcg/dL (45-160); Percent Iron Saturation 30 % (15-50); Potassium 4.2 mmol/L (3.3-5.1); Sodium 137 mmol/L (135-145); Total Iron Binding Capacity 335 mcg/dL (228-428); Total Protein 7.0 g/dL (6.5-8.0); Triglycerides 207 mg/dL (<150); Unsaturated Iron Binding 234 ug/dL
[2025-04-02 12:16] LABS: Ferritin 118 ng/mL (20-250)
[2025-04-02 12:28] LABS: Folate 7.7 ng/mL (> or = 4.0); Vitamin B12 533 pg/mL (200-900)
== END 2025-04-02 09:44 | disposition home or self-care (01) ==
LOC: HO.XRAY 09:43
PROVIDERS: Absent Provider Surgery; PCP Physician Assistant; Visit Provider Physician Assistant
DX: E66.01 Morbid (severe) obesity due to excess calories (principal); I10 Essential (primary) hypertension; M25.511 Pain in right shoulder; G89.29 Other chronic pain; M25.561 Pain in right knee; M25.522 Pain in left elbow; R07.9 Chest pain, unspecified; R00.2 Palpitations; R09.81 Nasal congestion; F14.91 Cocaine use, unspecified, in remission; Z68.43 Body mass index [BMI] 50.0-59.9, adult; Z87.891 Personal history of nicotine dependence
CPT/HCPCS: 36415; 71046; 80053; 80061; 82306; 82607; 82728; 82746; 83036; 83525; 83540; 84425; 84443; 84590; 84630; 85025; 86140; 93005; 99212

== ENCOUNTER → 2025-04-02 11:02 | Outpatient (BNV) | payer OTHER, SELFPAY | PROVIDERS: Absent Provider Surgery; PCP Physician Assistant; Visit Provider Internal Medicine Cardiovascular Disease | DX: R00.1 Bradycardia, unspecified (principal) | CPT/HCPCS: 93010 ==

== ENCOUNTER → 2025-04-02 11:02 | Outpatient (BNV) | payer OTHER, SELFPAY | PROVIDERS: Absent Provider Surgery; PCP Physician Assistant; Visit Provider Radiology Diagnostic Radiology | DX: E66.01 Morbid (severe) obesity due to excess calories (principal) | CPT/HCPCS: 71046 ==

== ENCOUNTER 2025-04-17 08:57 | Outpatient (AMB) | payer OTHER, SELFPAY ==
--- NOTE | 2025-04-17 09:00 | A.OFFWM_ITS ---
Intake Intake Visit Reasons: OV BH Intake Allergies acetaminophen (From Tylenol) Allergy (Mild, Verified 04/17/25 10:28) Hives cat dander (cats) Allergy (Unknown, Verified 04/17/25 10:28) Hives [facility] Medical History (Updated 04/11/25 @ 23:20 by Con Middleton MD) Vitamin D deficiency History of cocaine use Obstructive sleep apnea on CPAP Anxiety Lateral epicondylitis (tennis elbow) Morbid obesity with BMI of 50.0-59.9, adult Obesity HTN (hypertension) Surgical History Hx of wisdom tooth extraction Hx of cholecystectomy Family History Mother Stomach cancer Epilepsy Diabetes Liver failure Father Liver failure AIDS Son No problems noted. Son No problems noted. Son No problems noted. Son No problems noted. Son No problems noted. Social History Housing: House Alcohol intake: current Alcohol intake frequency: a few times a week Patient Tobacco Use Status: Former Tobacco user e-Cigarette/Vaping Use: Never Used service: No Current occupational status: employed Cognitive needs: No Hearing needs: No Vision needs: Yes (Rx glasses PRN) Behavioral Health Assessment Weight Management Therapy Therapy Notes Details The patient is a 40-year-old male presenting for a behavioral health assessment as part of the surgical weight loss program, following referral from his primary care provider. Presenting Concerns Referral Source WMP-Provider Reason for referral Completion of behavioral health assessment as part of process for weight-loss surgery. Precipitating Event Approximately six months ago, the patient visited [employer] and, after waiting in line for about an hour, was unable to fit into a ride due to his size. This experience served as a significant turning point, motivating him to pursue weight-loss treatment. Living Situation Current Living Situation Rent At risk of losing current housing? No Satisfied with current living situation? Yes Comments PT live with his and 2 girls. Food/Weight/Diet Expectations of change The patient began the program at 338 lbs, with an initial goal of losing 10% of his body weight prior to surgery. His most recent recorded weight is 333 lbs. His primary goals are to improve his overall health and adopt a healthier lifestyle. PT is implementing the following: Current meal plan: 2 protein shakes, 3 protein bars and one meal per day. Exercise plan: cardio/treadmill, 3-4 days at week. Scale: yes communication w/ provider: yes. History/Relationship with food The patient reports a strong enjoyment of food, with particular difficulty resisting fast food and sweet snacks. He notes that growing up in a household contributed to a tendency toward larger portion sizes. Example of meals before starting the program: Breakfast: self made protein shake Lunch: 1.30pm (chicken, vegetables) Dinner: skips Snacks: 10am ([employer] [place] oat bars), 2 snacks after dinner (2 bags of chips) Exercise: has home treadmill (inclines and tracks calories) Beverages: Coffee: none, Tea: none, Soda: none, Juice: (Grapejuice, apple juice) x1/wk, ETOH: 1-2/wk (5-6 beers) History/Relationship with weight The patient reports a long-standing enjoyment of food, with particular difficulty resisting fast food and sweet snacks. He at tributes part of his weight gain to cultural influences, noting that growing up in a household contributed to a pattern of consuming larger portion sizes. History/Relationship with dieting radha Laboy, self-diet and exercise, Detox will, maria ines Flores, meal delivery program. Binge Eating Do you frequently eat large amounts of food in short periods of time, not feeling physically hungry? Yes Do you feel out of control when you eat a large amount of food in a short perio d of time? No Do you eat large amounts of food rapidly and typically alone? No Night Eating Do you wake up at least once during the night to eat? No If you wake up in the night, do you find that it is necessary to eat something in order to fall back asleep? No Do you have little or no appetite in the morning and feel very hungry in the evening, often overeating between dinner and when you go to bed? No Social History Family history and relationship PT is for about 6 years, they don't have children but his has 2 daughters he adopted, they are 18 and 8. Parents . He has 2 brothers and 1 sister and 2 half sisters. He's close to his siblings. They all live in the area. PT reports he had a good childhood. 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 Developmental history and status PT had an IEP in school. Currently [employer]. Social support , siblings, collages at work. Community support None. Nondenominational/Spirituality None. Cultural/Ethnic information . Legal Involvement and History Current or historical involvement with the legal system? None reported. Education Highest grade completed 10th grade. Got GED. Preferred learning style Learn by doing and Visual Currently enrolled in educational program? No Interested in further educational program? 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 ) Wants help to find employment? No Meaningful activities music, play games, working out. Financial Situation Describe current financial situation Comfortable and Occasional struggle Financial assistance? None Service Service? No Mental Health and Addiction Treatment Current/Past substance abuse? Yes Comments Alcohol: 2x week, couple drinks, but not as often now, is more 4 beers every other weekend. Cigarettes/Tobacco: None Cannabis/Edibles: smokes 2 x day. Did recreational cocaine use over 15 years ago. Current/Past addictive behavior concerns? No Psychiatric history The patient was prescribed lorazepam by his PCP for anxiety and occasional panic-like symptoms, but has not taken it recently. He denies any history of mental health crises or inpatient psychiatric treatment. There is no history or current concern regarding suicidal ideation, self-harm, or harm to others. Medical and Physical Health Summary Additional Medical History not covered in history None aditional Sexual History concerns None reported. Physical exam in the last year? Yes Pain Screening Current pain? Yes Pain in the last few months? Yes Comments Knee pain. Medications Is the patient compliant with medications? Yes Does the patient have Cristobal Guardian in place? Not applicable Does the patient use complimentary health approaches? No Trauma/Abuse History History of trauma? No Questionnaires PHQ-9 Over the last 2 weeks, how often have you been bothered by any of the following problems? 1. Little interest or pleasure in doing things: not at all 2. Feeling down, depressed, or hopeless: not at all 3. Trouble falling or staying asleep, or sleeping too much: not at all 4. Feeling tired or having little energy: not at all 5. Poor appetite or overeating: not at all 6. Feeling bad about yourself - or that you are a failure or have let yourself or your family down: not at all 7. Trouble concentrating on things, such as reading the newspaper or watching television: not at all 8. Moving or speaking so slowly that other people could have noticed. Or the opposite - being so fidgety or restless that you have been moving around a lot more than usual: not at all 9. Thoughts that you would be better off or of hurting yourself in some way: not at all Total score: 0 Depression Screening Interpretation: Negative Depression Screening Done: Yes 97319 - PHQ-9 Billing: Yes Source: Developed by Drs. Camilo Starr, Angle Peres, Omar Shearer and colleagues, with an educational taz from [employer]. Assessment & Plan Assessment & Plan (1) Adjustment disorder: Code(s): F43.20 - Adjustment disorder, unspecified Qualifiers: Adjustment disorder type: unspecified type Qualified Code(s): F43.20 - Adjustment disorder, unspecified (2) Pre-bariatric surgery psychological evaluation: Code(s): Z71.89 - Other specified counseling Plan Following a comprehensive behavioral health assessment?including review of the Binge Eating Scale, PHQ-9, mental status evaluation, and patient self- report?there are no current behavioral health contraindications to proceeding with bariatric surgery. The patient demonstrates appropriate insight, motivation, and psychological readiness for the procedure. No active psychiatric symptoms or maladaptive eating behaviors were identified that would impede surgical outcomes at this time. The patient is cleared from a behavioral health perspective to proceed with bariatric surgery, and documentation can be submitted for insurance approval as indicated. The patient will return for a follow-up behavioral health visit in approximately 6?8 weeks for ongoing support, and again at 1?4 weeks postoperatively to monitor psychological adjustment, reinforce coping strategies, and screen for any emerging concerns such as mood changes, adjustment difficulties, or disordered eating patterns. Additional behavioral health support will be provided as needed based on postoperative assessment. Next appointment: 06/07/2024 at 9am, via video. [place] [address] Psy Diag Eval Patient Type New Diagnoses Adjustment disorder, unspecified type F43.20 Adjustment disorder type: unspecified type Pre-bariatric surgery psychological evaluation Z71.89 Additional Codes PHQ-9 - 03055 - PHQ-9 Billing: Yes ([id number]) Time Spent (min) 65
--- OUTSIDE RECORDS SUMMARY | 2025-04-17 16:40 | XMS_ITS | Clinical Summary ---
Author Organization [facility] Address [address] [place] [address] Phone Care Team Providers Care Vacuum Cooker Operator Name Role Phone Physician, Pcp Unknown [...] Depression Screening 05/30/2024 COVID-19 Vaccine (1 - 2024-2 6 season) 2025 Influenza Vaccine (#1) 2025 RSV [...] topic Insurance MEDICAID - [place] Care Teams Vacuum Cooker Operator Relationship Specialty Start Date End Date Physician, Pcp Unknown PCP - General 09/29/24
== END 2025-04-17 10:12 | disposition home or self-care (01) ==
LOC: HO.HBST 08:58
PROVIDERS: PCP Physician Assistant; Visit Provider Counselor Mental Health
DX: F43.20 Adjustment disorder, unspecified (principal); Z71.89 Other specified counseling
CPT/HCPCS: 90791

== ENCOUNTER → 2025-04-17 08:57 | Outpatient (BNVA) | payer OTHER, SELFPAY | PROVIDERS: PCP Physician Assistant; Visit Provider Counselor Mental Health | DX: M25.561 Pain in right knee (principal); M23.51 Chronic instability of knee, right knee | CPT/HCPCS: 20610; 99202; J1010; J2003 ==

== ENCOUNTER 2025-04-17 10:20 | Outpatient (AMB) | payer OTHER, SELFPAY ==
--- NOTE | 2025-04-17 10:27 | A.OFFVIS_ITS ---
Vital Signs 04/17/25 10:28 Height 5 ft 7 in Weight 331 lb BMI 51.8 Intake Visit Reasons: Right knee pain and giving way Intake Note: Lio is a 40 year old male who presents with complaints of right knee pain and giving way. The patient describes his pain as sharp in nature. Most of the pain is along the anterior aspect of his right knee. The patient states that he notices the pain most when he is going up and down stairs. He has not had an injection. He has tried anti-inflammatory medicines which gave him minimal relief. He is not able to take Tylenol. Allergies acetaminophen (From Tylenol) Allergy (Mild, Verified 04/17/25 10:28) Hives cat dander (cats) Allergy (Unknown, Verified 04/17/25 10:28) Hives Medication List - Last Reconciled 04/17/25 by William Laguerre MD cholecalciferol (vitamin D3) 125 mcg PO DAILY diltiazem HCl CD (Cartia XT) 180 mg PO DAILY 90 days fluticasone propionate 50 mcg/actuation (Allergy Relief (fluticasone)) 1 spray intranasal BID loratadine (Allergy Relief (loratadine)) 10 mg PO DAILY losartan 75 mg (1.5 x 50 mg) PO DAILY vitamin A palmitate 3,000 mcg PO DAILY [facility] Medical History Vitamin D deficiency History of cocaine use Obstructive sleep apnea on CPAP Anxiety Lateral epicondylitis (tennis elbow) Morbid obesity with BMI of 50.0-59.9, adult Obesity HTN (hypertension) Surgical History Hx of wisdom tooth extraction Hx of cholecystectomy Family History Mother Stomach cancer Epilepsy Diabetes Liver failure Father Liver failure AIDS Son No problems noted. Son No problems noted. Son No problems noted. Son No problems noted. Son No problems noted. Social History Housing: House Alcohol intake: current Alcohol intake frequency: a few times a week Patient Tobacco Use Status: Former Tobacco user e-Cigarette/Vaping Use: Never Used service: No Current occupational status: employed Cognitive needs: No Hearing needs: No Vision needs: Yes (Rx glasses PRN) Physical Exam Vital Signs: BMI result Body Mass Index 51.8 Const Other: Well-nourished well-developed very friendly male awake alert and oriented x3 in no acute distress Extrem Other: Right knee examination shows a minimal effusion, mild crepitus with range of motion, tenderness along his medial joint line, positive Samir's test, no instability Office Procedures AMB Joint Injection/Aspiration Joint Injection/Aspiration Primary Site: Right Knee Prep: site was prepped using aseptic technique Injected: 40 mg of, DepoMedrol, with 3 mL of and 1% plain Lidocaine Procedure: The patient tolerated the procedure well Coding 21341 - Large joint Procedure code (CPT) selection complete Results Reviewed Results Reviewed: Standing full weight-bearing x-rays of the patient's right knee show minimal joint space narrowing, no acute bony abnormalities Assessment & Plan Assessment & Plan (1) Right knee pain: Code(s): M25.561 - Pain in right knee Category: Medical Plan Mr. Florentino presents with right knee pain due to early degenerative joint disease as well as possible medial meniscus tearing. The risks and benefits of a right knee cortisone injection were discussed at length with the patient. The patient wished to proceed. He tolerated the injection well. He will continue with his home exercise program. He will contact me prior to his follow-up appointment in 3 months should any questions or concerns arise. If his symptoms do not improve I will recommend getting an MRI to evaluate the status of his medial meniscus. Feel free to call me at any time should questions regarding his orthopedic management arise. Thank you very much for asking me to see this very friendly gentleman. I spent 20 minutes in reviewing the patient's records and imaging studies, seeing the patient and documenting in the medical record. Orders: Orders AMB Joint Injection/Aspiration Today M25.561 - Pain in right knee Coding Level of Care Code New Pt Level 3 (17190) Complex EM visit Add On G2211 Diagnoses Right knee pain M25.561 CPT Codes Coding - 66103 Large joint: 31585 - Large joint ([id number])
[2025-04-17 10:28] VITALS: BMI 51.8
== END 2025-04-17 10:53 | disposition home or self-care (01) ==
LOC: HO.HOS 10:25
PROVIDERS: PCP Physician Assistant; Visit Provider Orthopaedic Surgery
DX: M25.561 Pain in right knee (principal)
CPT/HCPCS: 20610; 99203

== ENCOUNTER 2025-05-02 08:57 | Outpatient (AMB) | payer OTHER, SELFPAY ==
--- NOTE | 2025-05-02 09:02 | MHC.OFFVIS ---
Vital Signs 05/02/25 09:03 Height 5 ft 7 in Weight 331 lb BMI 51.8 Intake Visit Reasons: Right shoulder recurrent dislocations Intake Note: Loi 40 yr old right hand dominant male presents today for a a new problem visit for his right shoulder discomfort. Patient explains when he was 16 yrs ago while playing wrestling, he dislocated his shoulder. He has had recurrent shoulder dislocation since then. He has done physical therapy which aggravated his symptoms. He has also tried Tylenol and anti-inflammatory medicines which gave him minimal relief. Allergies acetaminophen (From Tylenol) Allergy (Mild, Verified 04/17/25 10:28) Hives cat dander (cats) Allergy (Unknown, Verified 04/17/25 10:28) Hives Medication List - Last Reconciled 05/02/25 by William Laguerre MD cholecalciferol (vitamin D3) 125 mcg PO DAILY diltiazem HCl CD (Cartia XT) 180 mg PO DAILY 90 days fluticasone propionate 50 mcg/actuation (Allergy Relief (fluticasone)) 1 spray intranasal BID loratadine (Allergy Relief (loratadine)) 10 mg PO DAILY losartan 75 mg (1.5 x 50 mg) PO DAILY vitamin A palmitate 3,000 mcg PO DAILY [facility] Medical History Vitamin D deficiency History of cocaine use Obstructive sleep apnea on CPAP Anxiety Lateral epicondylitis (tennis elbow) Morbid obesity with BMI of 50.0-59.9, adult Obesity HTN (hypertension) Surgical History Hx of wisdom tooth extraction Hx of cholecystectomy Family History Mother Stomach cancer Epilepsy Diabetes Liver failure Father Liver failure AIDS Son No problems noted. Son No problems noted. Son No problems noted. Son No problems noted. Son No problems noted. Social History Housing: House Alcohol intake: current Alcohol intake frequency: a few times a week Patient Tobacco Use Status: Former Tobacco user e-Cigarette/Vaping Use: Never Used service: No Current occupational status: employed Cognitive needs: No Hearing needs: No Vision needs: Yes (Rx glasses PRN) Physical Exam Vital Signs: BMI result Body Mass Index 51.8 Extrem Other: Right shoulder examination shows slightly decreased range of motion when compared to his left shoulder, 5/5 strength with supraspinatus testing, positive apprehension test, positive anterior drawer test Results Reviewed Results Reviewed: X-rays of the patient's right shoulder show severe acromioclavicular joint narrowing, a type 2 acromion, no acute bony abnormalities Assessment & Plan Assessment & Plan (1) Instability of right shoulder joint: Code(s): M25.311 - Other instability, right shoulder Category: Medical Plan Mr. Florentino presents with recurrent right shoulder instability most likely due to a anterior labral tear. Thus, I will send the patient for an MRI arthrogram of his right shoulder. I will contact him by phone once the MRI results are available. Feel free to call me at any time should questions regarding his orthopedic management arise. I spent 20 minutes in reviewing the patient's records and imaging studies, seeing the patient and documenting in the medical record. Orders: Orders FL arthrogram shoulder RT 05/03/25 M25.311 - Other instability, right shoulder MR shoulder RT w con 05/03/25 M25.311 - Other instability, right shoulder Coding Level of Care Code Est Pt Level 3 (82226) Complex visit Add On G2211 Diagnoses Instability of right shoulder joint M25.311
[2025-05-02 09:03] VITALS: BMI 51.8
--- OUTSIDE RECORDS SUMMARY | 2025-05-02 09:42 | XMS_ITS | Clinical Summary ---
Author Organization [facility] Address [address] [place] [address] Phone Care Team Providers Care Nutrition Manager Name Role Phone Physician, Pcp Unknown Primary [...] topic Insurance MEDICA[place] - [place] Care Teams Nutrition Manager Relationship Specialty Start Date End Date Physician, Pcp Unknown PCP - General 09/29/24
== END 2025-05-02 09:13 | disposition home or self-care (01) ==
LOC: HO.HOS 08:58
PROVIDERS: PCP Physician Assistant; Visit Provider Orthopaedic Surgery
DX: M25.311 Other instability, right shoulder (principal)
CPT/HCPCS: 99213

== ENCOUNTER → 2025-05-02 08:57 | Outpatient (BNVA) | payer OTHER, SELFPAY | PROVIDERS: PCP Physician Assistant; Visit Provider Orthopaedic Surgery | DX: M25.311 Other instability, right shoulder (principal) | CPT/HCPCS: 99212 ==

== ENCOUNTER 2025-05-09 06:34 | Day surgery (SDC) | payer OTHER, SELFPAY ==
--- OUTSIDE RECORDS SUMMARY | 2025-04-04 09:09 | XMS_ITS | Clinical Summary ---
Author Organization [facility] Address [address] [place] [address] Phone Care Team Providers Care Tub Operator Name Role Phone Physician, Pcp Unknown Primary [...] topic Insurance [place] - [place] Care Teams Tub Operator Relationship Specialty Start Date End Date Physician, Pcp Unknown PCP - General 09/29/24
--- NOTE | 2025-05-06 14:15 | HO.ANESPROP2 ---
Documented by User: Sarahy Holliday NP 05/06/25 14:34 HPI - Anesthesia Eval Consult details Narrative: 40 yr old male for upper endoscopy BMI 55 H/O cocaine abuse: Per PCP note, 1 relapse in past year. LAW on CPAP Follows [facility] for episodic palpitations & lightheadedness; work up including echo, holter & exercise nuclear stress test was unremarkable PMFSH Active Problems Active Problems: All Active Problems (Updated 05/02/25 @ 09:14 by William Laguerre MD) Instability of right shoulder joint (Acute) Vitamin A deficiency (Acute) Vitamin D deficiency (Acute) Palpitations (Acute) Chest pain (Acute) Chronic nasal congestion (Acute) Obstructive sleep apnea on CPAP (Acute) Anxiety (Acute) Osteoarthritis of right knee (Acute) Osteoarthritis of right shoulder (Acute) Lateral epicondylitis (tennis elbow) (Acute) Morbid obesity with BMI of 50.0-59.9, adult (Acute) Right shoulder pain (Acute) Right knee pain (Acute) Obesity (Acute) HTN (hypertension) (Acute) Past Medical History Medical History Vitamin D deficiency History of cocaine use Obstructive sleep apnea on CPAP Anxiety Lateral epicondylitis (tennis elbow) Morbid obesity with BMI of 50.0-59.9, adult Obesity HTN (hypertension) Family History Family History Mother Stomach cancer Epilepsy Diabetes Liver failure Father Liver failure AIDS Son No problems noted. Son No problems noted. Son No problems noted. Son No problems noted. Son No problems noted. Surgical History Surgical History Hx of wisdom tooth extraction Hx of cholecystectomy Social History Social History Housing: House Alcohol intake: current Alcohol intake frequency: a few times a week Patient Tobacco Use Status: Former Tobacco user Smoked in Last 30 Days: No e-Cigarette/Vaping Use: Never Used Use of substances other than those prescribed or required for medical reasons: Yes Substance Use Frequency: Daily Have you been hit, kicked, punched, or otherwise hurt by someone within the past year? If so, by whom?: No Are you DNR?: No Advance Directives: No Advance Directives Information Provided: Yes service: No Current occupational status: employed Cognitive needs: No Hearing needs: No Vision needs: Yes (Rx glasses PRN) Meds Allergies Allergy/AdvReac Type Severity Reaction Status Date / Time acetaminophen (From Tylenol) Allergy Mild Hives Verified 05/09/25 07:04 cat dander (cats) Allergy Unknown Hives Verified 05/09/25 07:04 Home Medications ?Medication ?Instructions ?Recorded ?Confirmed ?Last Taken ?Type nitroglycerin 0.3 mg sublingual 0.3 mg sublingual ONCE PRN Chest 05/07/25 05/09/25 Unknown History tablet Pain Exam Pertinent Lab Results Pertinent Lab Results: Laboratory Tests 04/02/25 10:51 WBC 6.2 RBC 5.47 Hgb 14.1 Hct 44.2 Plt Count 200 Sodium 137 Potassium 4.2 BUN 20 H Creatinine 0.87 Narrative Narrative: EKG 03/2025 Vent. Rate : 58 BPM Atrial Rate : 58 BPM P-R Int : 180 ms QRS Dur : 94 ms QT Int : 396 ms P-R-T Axes : 5 16 27 degrees QTcB Int : 388 ms Sinus bradycardia Otherwise normal ECG No previous ECGs available ECHO 01/23/25 Exercise Nuclear Stress Test 12/2024 Documented by User: Krista Britton MD 05/09/25 07:26 [facility] Past Medical History Medical History Vitamin D deficiency History of cocaine use Obstructive sleep apnea on CPAP Anxiety Lateral epicondylitis (tennis elbow) Morbid obesity with BMI of 50.0-59.9, adult Obesity HTN (hypertension) Family History Family History Mother Stomach cancer Epilepsy Diabetes Liver failure Father Liver failure AIDS Son No problems noted. Son No problems noted. Son No problems noted. Son No problems noted. Son No problems noted. Pertinent family history: Surgical History Surgical History (Reviewed 05/09/25 @ 07: by Krista Britton MD) Hx of wisdom tooth extraction Hx of cholecystectomy History of Problems with Anesthesia: Yes Social History Social History (Reviewed 05/09/25 @ : by Krista Britton MD) Housing: House Alcohol intake: current Alcohol intake frequency: a few times a week Patient Tobacco Use Status: Former Tobacco user Smoked in Last 30 Days: No e-Cigarette/Vaping Use: Never Used Use of substances other than those prescribed or required for medical reasons: Yes Substance Use Frequency: Daily Have you been hit, kicked, punched, or otherwise hurt by someone within the past year? If so, by whom?: No Are you DNR?: No Advance Directives: No Advance Directives Information Provided: Yes service: No Current occupational status: employed Cognitive needs: No Hearing needs: No Vision needs: Yes (Rx glasses PRN) Meds Allergies Allergy/AdvReac Type Severity Reaction Status Date / Time acetaminophen (From Tylenol) Allergy Mild Hives Verified 05/09/25 07:04 cat dander (cats) Allergy Unknown Hives Verified 05/09/25 07:04 Home Medications ?Medication ?Instructions ?Recorded ?Confirmed ?Last Taken ?Type nitroglycerin 0.3 mg sublingual 0.3 mg sublingual ONCE PRN Chest 05/07/25 05/09/25 Unknown History tablet Pain Exam Airway Mallampati Class: III TM Dist: >3cm Neck ROM: Full Loose/Missing/Broken Teeth: No Heart: RRR Lungs: CTA Assessment and Plan Assessment Anesthesia Assessment: Anesthesia Plan Discussed and Chart Reviewed Final Anesthetic Review History of Problems with Anesthesia: Yes NPO: Yes ASA Class: III Final Preanesthetic Review: Meds/Allgs Chart Reviewed, Consent Obtained/Reviewed and Anes Risks/Benef Reviewed Patient Risk: Intermediate Procedure Risk: Intermediate Anesthetic Plan Anesthetic Plan: MAC: Disposition: Standard PACU
[2025-05-07 11:08] VITALS: BMI 52.9
[2025-05-09 06:49] VITALS: BMI 50.2
[2025-05-09 06:56] VITALS: BP 154/87; PULSE 70; RESP 17; TEMP 36.5; O2SAT 97
[2025-05-09] MEDS: Lactated Ringers 1,000 ML 100 ML IVCONT (07:02)
--- NOTE | 2025-05-09 07:27 | MHC.SHP ---
Pre-Procedural Eval Section A - 24 Hr Update-Section A only Date of Service: 05/09/25 The patient is an INPATIENT: No The patient has been examined within 24 hours of the surgical procedure. The History & Physical has been completed within 30 days and I have reviewed it.: Yes Section B - Complete if H&P > 30 days Chief Complaint: Morbid (severe) obesity due to excess calories Relevant Family History (Specify if Yes): No Relevant Social History: None Present Medications: None Medical History: No relevant PMH History of Previous Operations: No relevant previous surgery Allergies: Allergies Allergy/AdvReac Type Severity Reaction Status Date / Time acetaminophen (From Tylenol) Allergy Mild Hives Verified 05/09/25 07:04 cat dander (cats) Allergy Unknown Hives Verified 05/09/25 07:04 Review of Systems Sugical H&P ROS: Negative: Constitution, Cardiovascular, Respiratory, Neurological, Psychiatric, Hem-Onc, Allergic/Immunologic, Gastrointestinal, Genitourinary, Musculoskeletal, Integumentary, Endocrine and Eyes/Ears/Nose/Throat Exam Surgical H&P Exam: Normal: HEENT, Normal: Heart, Normal: Lungs, Normal: Extremities, Normal: Abdomen, Normal: Skin and Normal: Neurological Plan Diagnosis/Plan: Unchanged (EGD to assess the stomach's anatomy. Risks of bleeding and perforation were discussed with the patient and he is in agreement with the plan.) I have reviewed the history and physical and performed a pertinent physical examination on my patient. No changes have occurred unless specified. Time Spent With Patient Time: Total time managing care of this patient today ____ minutes.
--- NOTE | 2025-05-09 07:28 | P.BOP_ITS ---
Brief Operative Note Date of Service: 05/09/25 Pre-op diagnosis: Morbid obesity Post-op diagnosis: same Procedure: PROCEDURE DATE: 05/09/2025 PREOPERATIVE DIAGNOSIS: Morbid obesity POSTOPERATIVE DIAGNOSIS: ?Same as above. Small reducible diaphragmatic hernia PROCEDURE: Dfesapkv-dkiveu-hmawptnoqvkt with biopsies Surgeon: Miguel Angel Middleton M.D.. Ph.D. Material Requirements Planning Manager: None ? Anesthesia: IV sedation Estimated blood loss: ?Minimal FINDINGS AND PROCEDURE: ? OPERATIVE INDICATIONS: ?The patient is a 40 year old male known to me who is interested in bariatric surgery. Based on this information I recommended an upper endoscopy to evaluate the patient's symptoms. Risks and complications of the surgery were discussed with the patient in advance particularly the possibility of perforation or bleeding that may require surgical intervention. The patient understood the risks and was in agreement with the plan. ? PROCEDURE: After informed consent was obtained by the patient, the patient was ?transferred to the Operating Room and was placed in the supine position.? After successful induction of IV sedation, a mouth block was inserted and the patient was placed in the left lateral decubitus position. An upper endoscopy was performed next, the oropharynx and esophagus appeared within the normal limits. There was a small reducible hiatal hernia. The z-line was smooth. Two biopsies were obtained from the distal esophagus 2-3 cm proximal to the GE junction and two additional biopsies from the GE junction. The stomach was entered and it appeared to be of normal size. There was no gastritis. There was no stricture or ulcer. A biopsy was obtained from the gastric fundus and the antrum. No significant bleeding was noted from any of the biopsy sites. Retroflexion of the scope confirmed the presence of a normal GE junction. The scope was then advanced into the duodenum to the 4th portion, which appeared to be normal as well. At that point the duodenum ?and the stomach were decompressed and the scope was withdrawn from the patient's mouth. The patient extubated and was transferred in stable condition to the Recovery Room for further care. I was present and performed all steps of the procedure. There were no residents to assist with this case. Bebeto Middleton M.D., Ph.D. Surgeon: Con Middleton MD Anesthesia: MAC Was an Material Requirements Planning Manager used for this Procedure?: No Estimated blood loss (mL): 0 IV fluids (mL): 400 Urine output (mL): 0 (No Stevens to record output) Pathology: other (1) antrum x1, 2) fundus x1, 3) GE junction x2, 4) distal esophagus x2) Condition: stable Disposition: PACU
[2025-05-09 07:49] LABS: Cannabinoid Screen Urine POSITIVE (Not Detect)
[2025-05-09 08:15] VITALS: BP 140/74; PULSE 87; RESP 18; TEMP 36.9; O2SAT 98
[2025-05-09 08:30] VITALS: BP 125/73; PULSE 75; RESP 18; O2SAT 95
[2025-05-09 08:45] VITALS: BP 133/80; PULSE 64; RESP 20; TEMP 36.8; O2SAT 95
== END 2025-05-09 09:45 | disposition home or self-care (01) ==
PROVIDERS: Nurse Practitioner; PCP Physician Assistant; Visit Provider Surgery
PROC: 0DJ08ZZ Inspection of Upper Intestinal Tract, Via Natural or Artificial Opening Endoscopic (ICD-10-PCS; CPT 43235; principal; 2025-05-09 07:30)
DX: E66.01 Morbid (severe) obesity due to excess calories (principal); Z68.43 Body mass index [BMI] 50.0-59.9, adult; K44.9 Diaphragmatic hernia without obstruction or gangrene; I10 Essential (primary) hypertension; F41.9 Anxiety disorder, unspecified; G47.33 Obstructive sleep apnea (adult) (pediatric); Z99.89 Dependence on other enabling machines and devices; Z79.899 Other long term (current) drug therapy; Z88.8 Allergy status to other drugs, medicaments and biological substances; Z90.49 Acquired absence of other specified parts of digestive tract; Z87.891 Personal history of nicotine dependence
CPT/HCPCS: 43239; 80307; 88305; 88313; 88342; J2003; J2250; J2704

== ENCOUNTER → 2025-05-09 06:34 | Outpatient (BNV) | payer OTHER, SELFPAY | PROVIDERS: PCP Physician Assistant; Visit Provider Surgery | DX: E66.01 Morbid (severe) obesity due to excess calories (principal); Z68.43 Body mass index [BMI] 50.0-59.9, adult; K44.9 Diaphragmatic hernia without obstruction or gangrene | CPT/HCPCS: 43239 ==